=== PATIENT | male | born 1965 | race African-American/Black ===

== ENCOUNTER 2016-09-03 13:00 | Inpatient (IN) | payer BC ==
[~2016-09-03] VITALS: Ht 177.8 cm; Wt 79.7 kg
--- NOTE | ~2016-09-03 | HC ---
[facility] [place] [address] CONSULTATION Name: TANYA FRANK Room #: 422-P [facility] IN M.R.#: [id number] Admission: 09/03/16 Attend Phys: Reggie Velasquez MD Discharge: Date of : 69 Report #: [id number] THIS REPORT FOR: //name// CC: Reggie Gutierrez [facility] DATE OF SERVICE: 09/03/2016 HISTORY OF PRESENT ILLNESS: The patient is a 50-year-old -[place] male who comes in today with progressive abdominal pain and discomfort, epigastric, associated with some nausea, vomiting. We do not have a prior EKG. Here, he does have some subtle T-wave abnormalities. He has followup for an idiopathic cardiomyopathy, he is a fairly good historian. He sees Dr. Mendez once a year or so, possibly a stress test a couple of years ago, but this is felt to be nonischemic. Although, has significant family history for premature coronary disease. This pain is associated with radiation throughout his abdomen and into his chest, does not appear to have an exertional component. He is fairly active. It sounds like he is a functioning alcoholic, drinks at least a pine of vodka a day, but he works multimedia designer as embalmer. He is compliant with medications, which are losartan, carvedilol 12.5 b.i.d., Aldactone, Xarelto for some questionable thrombus in this heart, I do not have those records, Aldactone is 25, Lipitor 10, losartan 25, Percocet. LABORATORY DATA: Cardiac enzymes are negative. Creatinine 1.1, potassium 3.0, sodium 135. H and H is 14 and 40, platelets 140. White count 7.3, alcohol level was less than 10. Lipase was , glucose 144. Remainder of liver function tests relatively normal. Troponin is negative. PAST MEDICAL HISTORY: Positive for an idiopathic cardiomyopathy, recurrent alcoholic pancreatitis, alcoholism, tobacco abuse, COPD, hypertension, hypercholesterolemia, some questionable cardiac thrombus. SOCIAL HISTORY: He is with children. He works as embalmer, heavy alcohol and tobacco use. FAMILY HISTORY: Had a twin brother and have had a heart attack and a sister who had a heart attack he states, obviously in their 50s. REVIEW OF SYSTEMS: Negative except for some occasional nocturia and as stated above. ASSESSMENT: 1. Pancreatitis with severe abdominal discomfort, alcohol induced. 2. History of idiopathic cardiomyopathy. 3. Hypertension. 4. Hypercholesterolemia. [facility] [address] [address] CONSULTATION Name: TANYA FRANK Room #: 422-P [facility] IN ..#: [id number] Admission: 09/03/16 Attend Phys: Reggie Velasquez MD Discharge: Date of : 69 Report #: [id number] 5. Apparent glucose intolerance. RECOMMENDATIONS AND PLAN: Obviously, IV fluids and pain control, certainly high alert for withdrawal here, although he states he has never had that, continue with his losartan, atorvastatin, Xarelto, although I am not totally clear on the dose of the Xarelto here, 10 mg and like to clarify exactly the utilization of this in the setting, carvedilol 12.5 b.i.d. and pain control. I would presumably want to repeat an echo on him. I do not perceive any of this chest pain to be current active myocardial ischemia, but certainly after treatment of the pancreatitis, he will need further evaluation of this coronary artery status, that could be done as an outpatient I suspect and we will, however, continue to follow with you. I would like to try to clarify the dose and the reason for the Xarelto anticoagulant. By: 2132 0021 Mark Back MD, FACC /nt
--- NOTE | ~2016-09-03 | EKG ---
[address] [address] ELECTROCARDIOGRAM REPORT Name: TANYA FRANK Room #: 422-P ADM IN M.R.#: [id number] Admission: 09/03/16 Attend Phys: Reggie Velasquez MD Discharge: Date of : 69 Report #: [id number] THIS REPORT FOR: //name// [facility] ED Test Date: 2016-09-03 Test Time: 13:13:29 Pat Name: TANYA FRANK Department: Room: 422 Gender: M Deposit Refund Clerk: Radha MCCORD : 1965 Requested By: Vanessa Hays Order Number: [id number] MD: Yoni Lux Measurements Intervals [place] Rate: 74 P: 51 [place]: 168 QRS: 0 QRSD: 114 T: 133 QT: 377 QTc: 419 Interpretive Statements Sinus rhythm Atrial premature complex Probable left atrial enlargement Baseline wander in lead(s) II,V1,V2,V3,V4,V5,V6 No previous ECG available for comparison Electronically Signed On 09-04-2016 14:01:16 CDT by Yoni Lux [email or web address] <ELECTRONICALLY SIGNED> By: Yoni Lux MD, [facility] 09/04/16 1401 1313 1313 Yoni Lux MD, [facility] /EPI
--- NOTE | ~2016-09-03 | EKG ---
[place] [address] [address] [place] [address] ELECTROCARDIOGRAM REPORT Name: TANYA FRANK Room #: 422-P ADM IN M.R.#: [id number] Admission: 09/03/16 Attend Phys: Reggie Velasquez MD Discharge: Date of : 69 Report #: [id number] THIS REPORT FOR: //name// [facility] Test Date: 2016-09-04 Test Time: 07:43:43 Pat Name: TANYA FRANK Department: Room: 422 P Gender: M Professional System Administrator: RAEGAN : 1965 Requested By: Mark Back Order Number: [id number] MD: Yoni Lux Measurements Intervals [place] Rate: 82 P: 38 [place]: 151 QRS: -49 QRSD: 94 T: 90 QT: 395 QTc: 462 Interpretive Statements Sinus rhythm Left atrial enlargement Left anterior fascicular block Low voltage, extremity and precordial leads Abnormal R-wave progression, early transition No previous ECG available for comparison Electronically Signed On 09-04-2016 14:09:10 CDT by Yoni Lux [email or web address] <ELECTRONICALLY SIGNED> By: Yoni Lux MD, [facility] 09/04/16 1409 0743 0743 Yoni Lux MD, [facility] /EPI
[2016-09-03 13:01] VITALS: BP 149/63
[2016-09-03] MEDS ORDERED: ALDACTONE25 MG PO (13:18)
[2016-09-03] MEDS ORDERED: XARELTO10 MG PO (13:19)
[2016-09-03] MEDS ORDERED: CARVEDILOL12.5 MG PO (13:19)
[2016-09-03] MEDS ORDERED: LIPITOR10 MG PO (13:20)
[2016-09-03] MEDS ORDERED: COZAAR 25 MG TA25 M1 PO (13:20)
[2016-09-03] MEDS ORDERED: PERCOCET PO (13:21)
[2016-09-03] MEDS ORDERED: TYLENOL PM EX-1 EACH PO (13:21)
[2016-09-03 13:35] LABS: HEMATOCRIT 40.9 % (42.0-52.0); HEMOGLOBIN 14.4 gm/dL (14.0-18.0); MCH 34.5 pg (26.0-34.0); MCHC 35.1 g/dL (28.0-37.0); MCV 98.2 fL (80.0-100.0); PLATELET COUNT 148 thou/uL (150-400); RBC 4.16 mil/uL (4.50-6.00); WBC 7.3 thou/uL (4.0-11.0)
[2016-09-03 13:37] LABS: ANION GAP 6 mmol/L (7-16); BUN 13 mg/dL (7-18); CALCIUM 9.2 mg/dL (8.5-10.1); CHLORIDE 103 mmol/L (98-107); CO2 26 mmol/L (21-32); CREATININE 1.1 mg/dL (0.7-1.3); GLUCOSE 144 mg/dL (74-106); MANUAL DIFF YES; POTASSIUM 3.9 mmol/L (3.5-5.1); SODIUM 135 mmol/L (136-145)
[2016-09-03 13:44] LABS: TROPONIN-I < 0.04 ng/mL (<0.04-0.07)
[2016-09-03 13:51] LABS: ALBUMIN 3.2 g/dL (3.4-5.0); DIRECT BILIRUBIN 0.3 mg/dL (<0.1-0.3); TOTAL PROTEIN 6.9 g/dL (6.4-8.2)
[2016-09-03 14:03] LABS: ABSOLUTE NEUTROPHILS 5.5 thou/uL (1.4-8.2); ANISOCYTOSIS 1+; TOTAL CELL COUNT 100
[2016-09-03 15:05] VITALS: BP 146/80
[2016-09-03 15:31] VITALS: BP 157/89
[2016-09-03 19:15] VITALS: BP 151/95
[2016-09-04 05:02] VITALS: BP 151/81
[2016-09-04 06:00] LABS: HEMATOCRIT 41.1 % (42.0-52.0); HEMOGLOBIN 14.4 gm/dL (14.0-18.0); MCH 34.8 pg (26.0-34.0); MCHC 35.2 g/dL (28.0-37.0); MCV 98.9 fL (80.0-100.0); RBC 4.15 mil/uL (4.50-6.00); RDW 13.9 % (10.5-14.5)
[2016-09-04 06:33] LABS: CALCIUM 8.6 mg/dL (8.5-10.1); CREATININE 0.9 mg/dL (0.7-1.3); POTASSIUM 4.4 mmol/L (3.5-5.1); TOTAL BILIRUBIN 0.8 mg/dL (<0.1-1.0); TOTAL PROTEIN 6.2 g/dL (6.4-8.2)
[2016-09-04 08:26] VITALS: BP 138/82
[2016-09-04 09:19] LABS: CHOLESTEROL 120 mg/dL (<200); HDL CHOLESTEROL 45 mg/dL (>40); LDL CHOLESTEROL 58 mg/dL (<100); TC:HDL 2.7 Ratio (Not establshd); TRIGLYCERIDE 86 mg/dL (<150); VLDL 17 mg/dL (<40)
[2016-09-04 15:01] VITALS: BP 117/70
[2016-09-04 20:00] VITALS: BP 115/68
[2016-09-05 04:30] VITALS: BP 118/75
[2016-09-05 06:00] LABS: ALBUMIN 2.6 g/dL (3.4-5.0); CALCIUM 8.1 mg/dL (8.5-10.1); CREATININE 0.9 mg/dL (0.7-1.3); MAGNESIUM 1.3 mg/dL (1.8-2.4); POTASSIUM 3.8 mmol/L (3.5-5.1); TOTAL BILIRUBIN 0.5 mg/dL (<0.1-1.0); TOTAL PROTEIN 5.8 g/dL (6.4-8.2)
[2016-09-05 07:22] VITALS: BP 140/70
[2016-09-05] MEDS ORDERED: TRAMADOL 50 MG50 MG PO (10:22)
[2016-09-05 10:27] VITALS: BP 140/70
== END 2016-09-05 11:18 | disposition home or self-care (01) | DRG 438 ==
LOC: ER 13:00 → EROBS 14:36 → 4E 15:16
PROVIDERS: Emergency Medicine; Hospitalist; Internal Medicine; Nurse Practitioner Adult Health
DX: K85.20 Alcohol induced acute pancreatitis without necrosis or infection (principal); E43 Unspecified severe protein-calorie malnutrition; I42.9 Cardiomyopathy, unspecified; R07.89 Other chest pain; I10 Essential (primary) hypertension; E78.00 Pure hypercholesterolemia, unspecified; F17.210 Nicotine dependence, cigarettes, uncomplicated; J44.9 Chronic obstructive pulmonary disease, unspecified; E74.39 Other disorders of intestinal carbohydrate absorption; F10.20 Alcohol dependence, uncomplicated; Z79.899 Other long term (current) drug therapy; Z82.49 Family history of ischemic heart disease and other diseases of the circulatory system; Z68.25 Body mass index [BMI] 25.0-25.9, adult
CPT/HCPCS: 10183

== ENCOUNTER 2016-12-26 20:31 | Inpatient (IN) | payer BC ==
[~2016-12-26] VITALS: Ht 175.3 cm; Wt 81.3 kg
--- NOTE | ~2016-12-26 | HC ---
[facility] [place] [address] CONSULTATION Name: TNAYA FRANK Room #: 242-P ADM IN M.R.#: [id number] Admission: 12/26/16 Attend Phys: Ishan Caldera MD Discharge: Date of : 69 Report #: [id number] THIS REPORT FOR: //name// CC: Brenda Caldera DATE OF SERVICE: 12/27/2016 REASON FOR CONSULTATION: Respiratory insufficiency. IMPRESSION: 1. Pulmonary infiltrates, possible aspiration pneumonia. 2. Uzsvc-fx-yjdtqzj pancreatitis. 3. History of hematemesis, not melena. 4. History of cardiomyopathy. 5. Thrombocytopenia. 6. ETOH use, possible withdrawal. 7. History of left ventricular thrombus. PLAN: Aerosol therapy. Agree with antibiotic choice. GI to see echocardiogram. HISTORY OF PRESENT ILLNESS: A 51-year-old with history of pancreatitis, ETOH use, comes in with complaint of abdominal pain x 3 days. The patient is not able to give a good history. is present and we discussed positive nausea, vomiting. 1 pint of liquor per day per chart. PAST MEDICAL HISTORY: ALLERGIES: None known. HOME MEDICATIONS: Include spironolactone, Xarelto, Coreg, Lipitor, Cozaar. SOCIAL HISTORY: Positive tobacco 2 packs a day, daily alcohol. FAMILY HISTORY: Heart disease and hypertension. PHYSICAL EXAMINATION: LUNGS: Decreased. HEART: Tachycardic. ABDOMEN: Tender diffuse. EXTREMITIES: Showed no clubbing, cyanosis. Positive trace edema. Did follow . CT abdomen and pelvis showed fatty liver and acute pancreatitis. Chest x-ray showed no acute initially; however, this a.m. showed patchy right infiltrate. ABG: pH 7.429, pCO2 of 33, pO2 of BUN 6, creatinine 1, lipase 1980, [facility] [address] [place] [address] CONSULTATION Name: TANYA FRANK Room #: 242-P ADM IN .R.#: [id number] Admission: 12/26/16 Attend Phys: Ishan Caldera MD Discharge: Date of : 69 Report #: [id number] lactate 2.4, white count 9.3, hemoglobin 14.5, platelets 108, bands, 3. Venous Doppler negative. We will follow closely with you. <ELECTRONICALLY SIGNED> By: Earnestine Conner MD 12/29/16 1907 1943 0737 Earnestine Conner MD /nt
--- NOTE | ~2016-12-26 | EKG ---
[place] [address] [address] [address] ELECTROCARDIOGRAM REPORT Name: TANYA FRANK Room #: 242-P ADM IN M.R.#: [id number] Admission: 12/26/16 Attend Phys: Ishan Caldera MD Discharge: Date of : 69 Report #: [id number] THIS REPORT FOR: //name// [facility] ED Test Date: 2016-12-26 Test Time: 21:59:26 Pat Name: TANYA FRANK Department: Room: 242 Gender: M Burlapper: [id number] : 1965 Requested By: John Pederson Order Number: [id number] MD: Yoni Lux Measurements Intervals [place] Rate: 95 P: 49 [place]: 138 QRS: -29 QRSD: 179 T: 68 QT: 368 QTc: 463 Interpretive Statements Sinus rhythm Leftward axis Nonspecific T wave abnormality Compared to ECG 09/04/2016 07:43:43 No significant change was found Electronically Signed On 12-27-2016 7:24:20 CDT by Yoni Lux [email or web address] <ELECTRONICALLY SIGNED> By: Yoni Lux MD, [facility] 12/27/16 0724 58 58 Yoni Lux MD, [facility] /EPI
--- NOTE | ~2016-12-26 | HC ---
[facility] [place] [address] CONSULTATION Name: TANYA FRANK Room #: 215-[facility] IN M.R.#: [id number] Admission: 12/26/16 Attend Phys: Ishan Caldera MD Discharge: 01/01/17 Date of : 69 Report #: [id number] THIS REPORT FOR: //name// CC: Brendamarietta Caldera DATE OF SERVICE: 12/28/2016 HISTORY OF PRESENT ILLNESS: A 51-year-old male who was admitted with some abdominal pain and questionable hypoxemia. There is some question of pulmonary infiltrate and aspiration. Longstanding cardiomyopathy, felt to be presumed alcoholic. He has had significant withdrawals for the last couple of days, better tonight, but still a poor historian. It is not clear if there is any acute decompensation of his cardiac function here, but I am called [facility] to see the patient. EF has been 30% to 35% on an echo done yesterday. There is mild to moderate MR and TR. PA pressure was 40. I saw him a few months ago for a hospitalization. Acute on chronic pancreatitis and alcohol withdrawal. He has had significant alcohol withdrawal symptoms for the last couple of days. From that records we have previously obtained, this appears to be an alcohol-induced cardiomyopathy. He has never had a prior infarct or any stents placed. I see no evidence of any prior films or any limited prior records that I recall that had anything about an apical thrombus. It is not a segmental wall motion abnormality, it is global. He has allegedly been maintained on Lipitor, losartan, clonidine, and carvedilol. I am not sure how compliant he has been. He is a daily heavy drinker. 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 He denies any chest pain. He had been on some Xarelto in the past for thrombus, I guess from an old record, but I do not have documentation of this. SOCIAL HISTORY: He is . He is an embalmer. Heavy daily alcohol or tobacco use. to a woman with 4 children, he was unclear. FAMILY HISTORY: He states he had a twin brother who had a heart attack, I am not sure that this is also reliable. I am not really able to obtain any ____ review of systems. He states he has to get up at night to urinate. LABORATORY DATA: Laboratory work reveals lipase of 939, it was 2900, so obviously, he had a pancreatitis, I am not sure it has ever resolved completely. Amylase was 270, then 157. Creatinine is 1.3. Potassium 4.0. Total protein is low at 5.9. Troponin 0.09, not significant. Lipids were extremely low as would be expected in alcoholism when they were checked in August. H and H are 13 and 38 with a white count of 13.6 and platelets 103. Chest x-ray today, cardiomegaly, no other significant findings. [facility] [address] [place] [address] CONSULTATION Name: TANYA FRANK Room #: 215-P DIS IN M.R.#: [id number] Admission: 12/26/16 Attend Phys: Ishan Caldera MD Discharge: 01/01/17 Date of : 69 Report #: [id number] ASSESSMENT: 1. Acute on chronic pancreatitis. 2. Idiopathic presumed alcoholic cardiomyopathy, but certainly currently hemodynamically stable. 3. History of hypertension. 4. Alcohol abuse and alcohol withdrawal. RECOMMENDATIONS: I believe there has been extensive workup. He has been followed by Dr. Mendez at [facility], although I do not know when he was last there and obviously, compliance is an issue. He states he was taking 10 mg of Xarelto, I am not sure there is data for that dose, would be low, Aldactone, Lipitor, carvedilol, and losartan. I would continue those medications, which I believe they have been and I do not have anything else to have from a cardiac perspective or recommend any further cardiac workup at this time. Obviously, alcohol cessation would be of extreme benefit here, probably not realistic. Please call if needed. <ELECTRONICALLY SIGNED> By: Mark Back MD, FACC 01/02/17 1646 2226 0203 Mark Back MD, FACC /nt
--- NOTE | ~2016-12-26 | 2DMMODE ---
[facility] [address] [place] [address] 2 D/M-MODE ECHOCARDIOGRAM Name: TANYA FRANK Room #: 242-P ADM IN M.R.#: [id number] Admission: 12/26/16 Attend Phys: Michael Krueger Discharge: Date of : 69 Date of Service: 12/28/16 1235 Report #: [id number] THIS REPORT FOR: //name// APPROVED REPORT Study performed: 12/28/2016 09:29:12 EXAM: Comprehensive 2D, Doppler, and color-flow Echocardiogram Patient Location: ICU Room #: 242 Status: routine BSA: 1.88 HR: 98 bpm BP: 105/65 mmHg Rhythm: NSR Other Information Study Quality: Adequate Technically limited study due to patient cooperation. Indications Hx: Cardiomyopathy, ETOH and tobacco abuse. 2D Dimensions RVDd: 37.46 mm LVEF(%): 29.00 (>50%) IVSd: 11.12 (7-11mm) LVOT Diam: 20.95 (18-24mm) LVDd: 55.69 mm PWd: 10.33 (7-11mm) Ascending Ao: 29.08 (22-36mm) LVDs: 48.04 (25-40mm) Aortic Root: 26.18 mm Tolbert's LVEF: 29.00 % Volumes Left Atrial Volume (Systole) Single Plane 4CH: 86.28 mL Single Plane 2CH: 76.24 mL LA ESV Index: 50.00 mL/m2 Aortic Valve AoV Peak Jaylen.: 1.54 m/s AO Peak Gr.: 9.45 mmHg LVOT Max P.03 mmHg LVOT Max V: 1.12 m/s ZANE Vmax: 2.51 cm2 Mitral Valve [facility] [address] [place] [address] 2 D/M-MODE ECHOCARDIOGRAM Name: TANYA FRANK Room #: 242-[facility] IN .R.#: [id number] Admission: 12/26/16 Attend Phys: Michael Krueger Discharge: Date of : 69 Date of Service: 12/28/16 1235 Report #: [id number] E/A Ratio: 0.8 MV Decel. Time: 125.94 ms MV E Max Jaylen.: 1.29 m/s MV A Jaylen.: 1.53 m/s MV PHT: 36.52 ms IVRT: 143.02 ms Pulmonary Valve PV Peak Jaylen.: 0.97 m/s PV Peak Gr.: 3.79 mmHg Tricuspid Valve TR Peak Jaylen.: 2.43 m/s RAP Estimate: 5.00 mmHg TR Peak Gr.: 23.71 mmHg PA Pressure: 28.00 mmHg Left Ventricle The left ventricle is normal size. Regional wall motion abnormalities are noted. There is normal left ventricular wall thickness. Left ventricular systolic function is moderate to severely decreased. LVEF is 30-35%. Mild diastolic dysfunction is present (impaired relaxation pattern). Right Ventricle The right ventricle is normal size. The right ventricular systolic function is normal. Atria Left atrium is severely dilated. The right atrium size is normal. Aortic Valve The aortic valve is normal in structure. Mild to moderate aortic regurgitation. There is no aortic valvular stenosis. Mitral Valve The mitral valve is mildly thickened. There is mitral annular calcification. Moderate mitral regurgitation. Tricuspid Valve The tricuspid valve is normal in structure. Trace tricuspid regurgitation. Estimated PAP is 28mmHg. Pulmonic Valve The pulmonary valve is normal in structure. Trace pulmonic regurgitation. [facility] [address] [place] [address] 2 D/M-MODE ECHOCARDIOGRAM Name: TANYA FRANK Room #: 242-P [facility] IN M.R.#: [id number] Admission: 12/26/16 Attend Phys: Michael Krueger Discharge: Date of : 69 Date of Service: 12/28/16 1235 Report #: [id number] Great Vessels The aortic root is normal in size. The ascending aorta is normal in size. IVC is normal in size and collapses >50% with inspiration. Pericardium There is no pericardial effusion. <Conclusion> The left ventricle is normal size. Left ventricular systolic function is moderate to severely decreased. Mild diastolic dysfunction is present (impaired relaxation pattern). The right ventricle is normal size. Left atrium is severely dilated. Mild to moderate aortic regurgitation. Moderate mitral regurgitation. Trace tricuspid regurgitation. Estimated PAP is 28mmHg. <ELECTRONICALLY SIGNED> By: Jose Wolfe MD 12/28/16 1235 1235 1235 Jose Wolfe MD /INF
[~2016-12-26 20:31] MED LIST: ALDACTONE25 MG PO; CARVEDILOL12.5 MG PO; COZAAR 25 MG TA25 M1 PO; LIPITOR10 MG PO; PERCOCET PO; TRAMADOL 50 MG50 MG PO; TYLENOL PM EX-1 EACH PO; XARELTO10 MG PO
[2016-12-26 20:39] VITALS: BP 141/89
[2016-12-26 22:05] LABS: ABSOLUTE NEUTROPHILS 6.9 thou/uL (1.4-8.2); BASOPHILS 0.4 % (0.0-2.0); EOSINOPHILS 0.1 % (0.0-3.0); HEMATOCRIT 39.6 % (42.0-52.0); HEMOGLOBIN 14.2 gm/dL (14.0-18.0); LYMPHOCYTES 11.9 % (24.0-44.0); MANUAL DIFF NO; MCH 36.5 pg (26.0-34.0); MCHC 35.8 g/dL (28.0-37.0); MONOCYTES 10.4 % (1.0-8.0); PLATELET COUNT 138 thou/uL (150-400); POLYS 77.2 % (36.0-66.0); RBC 3.88 mil/uL (4.50-6.00); RDW 15.4 % (10.5-14.5); WBC 8.9 thou/uL (4.0-11.0)
[2016-12-26 22:09] LABS: CALCIUM 8.6 mg/dL (8.5-10.1); CREATININE 1.2 mg/dL (0.7-1.3); POTASSIUM 3.5 mmol/L (3.5-5.1)
[2016-12-26 22:16] LABS: ALBUMIN 3.5 g/dL (3.4-5.0); TOTAL BILIRUBIN 0.5 mg/dL (<0.1-1.0); TOTAL PROTEIN 7.6 g/dL (6.4-8.2)
[2016-12-27] VITALS (28 sets, daily range): BP systolic 113–174; BP diastolic 74–111
[2016-12-27 03:24] LABS: INR 1.1; PROTIME 11.2 Seconds (9.3-11.4)
[2016-12-27 03:26] LABS: FOLIC ACID 2.2 ng/mL (8.6-58.9); TSH 1.769 uIU/mL (0.358-3.740)
[2016-12-27 07:28] LABS: HEMOGLOBIN 13.5 gm/dL (14.0-18.0)
[2016-12-27 07:34] LABS: MCH 36.2 pg (26.0-34.0); MCHC 35.4 g/dL (28.0-37.0); MCV 102.1 fL (80.0-100.0); PLATELET COUNT 103 thou/uL (150-400); RBC 3.73 mil/uL (4.50-6.00); RDW 15.4 % (10.5-14.5); WBC 8.8 thou/uL (4.0-11.0)
[2016-12-27 07:35] LABS: MANUAL DIFF YES
[2016-12-27 07:51] LABS: MAGNESIUM 0.4 mg/dL (1.8-2.4)
[2016-12-27 09:14] LABS: ABSOLUTE NEUTROPHILS 7.7 thou/uL (1.4-8.2); PLATELET ESTIMATE NORMAL; TOTAL CELL COUNT 100
[2016-12-27 09:57] LABS: ABG SAMPLE TYPE ARTERIAL; BE(vivo) -1.8 mmol/L (-2 to +3); HCO3 21.7 mmol/L (22.0-26.0); LACTATE 2.09 mmol/L (0.5-2.0); O2(CT) 18.8 mL/dL (15.0-23.0); PCO2 33.5 mmHg (35.0-45.0); PO2 71.2 mmHg (80.0-100.0); pH 7.429 (7.360-7.450); sO2 94.9 % (92.0-98.0); tCO2 22.7 mmol/L (24.0-30.0)
[2016-12-27 09:58] LABS: STICK SITE R.RADIAL
[2016-12-27 12:16] LABS: CALCIUM 7.5 mg/dL (8.5-10.1); POTASSIUM 4.7 mmol/L (3.5-5.1)
[2016-12-27 12:26] LABS: HEMATOCRIT 40.5 % (42.0-52.0); HEMOGLOBIN 14.5 gm/dL (14.0-18.0); MCH 36.6 pg (26.0-34.0); MCHC 35.8 g/dL (28.0-37.0); MCV 102.4 fL (80.0-100.0); PLATELET COUNT 108 thou/uL (150-400); RBC 3.96 mil/uL (4.50-6.00); RDW 15.5 % (10.5-14.5); WBC 9.3 thou/uL (4.0-11.0)
[2016-12-27 12:27] LABS: ALBUMIN 3.1 g/dL (3.4-5.0); TOTAL BILIRUBIN 1.3 mg/dL (<0.1-1.0); TOTAL PROTEIN 6.4 g/dL (6.4-8.2)
[2016-12-27 12:28] LABS: MANUAL DIFF YES
[2016-12-27 12:56] LABS: ABSOLUTE NEUTROPHILS 8.7 thou/uL (1.4-8.2); PLATELET ESTIMATE NORMAL; TOTAL CELL COUNT 100
[2016-12-28] VITALS (25 sets, daily range): BP systolic 105–170; BP diastolic 65–96
[2016-12-28 06:19] LABS: HEMATOCRIT 38.2 % (42.0-52.0); HEMOGLOBIN 13.1 gm/dL (14.0-18.0); MCH 35.4 pg (26.0-34.0); MCHC 34.2 g/dL (28.0-37.0); MCV 103.4 fL (80.0-100.0); PLATELET COUNT 103 thou/uL (150-400); RBC 3.69 mil/uL (4.50-6.00); WBC 13.6 thou/uL (4.0-11.0)
[2016-12-28 06:20] LABS: MANUAL DIFF YES
[2016-12-28 06:28] LABS: INR 1.2; PROTIME 11.8 Seconds (9.3-11.4)
[2016-12-28 06:30] LABS: ALBUMIN 2.7 g/dL (3.4-5.0); CALCIUM 7.8 mg/dL (8.5-10.1); CREATININE 1.3 mg/dL (0.7-1.3); MAGNESIUM 1.8 mg/dL (1.8-2.4); TOTAL BILIRUBIN 1.1 mg/dL (<0.1-1.0); TOTAL PROTEIN 5.9 g/dL (6.4-8.2)
[2016-12-28 09:05] LABS: ABSOLUTE NEUTROPHILS 12.5 thou/uL (1.4-8.2); PLATELET ESTIMATE NORMAL; TOTAL CELL COUNT 100
[2016-12-29] VITALS (22 sets, daily range): BP systolic 107–146; BP diastolic 70–107
[2016-12-29 06:20] LABS: ALBUMIN 2.6 g/dL (3.4-5.0); DIRECT BILIRUBIN 0.4 mg/dL (<0.1-0.3); TOTAL PROTEIN 5.6 g/dL (6.4-8.2)
[2016-12-29 06:21] LABS: ALBUMIN 2.6 g/dL (3.4-5.0); CALCIUM 8.1 mg/dL (8.5-10.1); MAGNESIUM 1.6 mg/dL (1.8-2.4); PHOSPHORUS 3.1 mg/dL (2.5-4.9); POTASSIUM 3.8 mmol/L (3.5-5.1); TOTAL PROTEIN 5.6 g/dL (6.4-8.2)
[2016-12-30] VITALS (19 sets, daily range): BP systolic 103–154; BP diastolic 68–112
[2016-12-30 02:35] LABS: ALBUMIN 2.8 g/dL (3.4-5.0); CALCIUM 8.3 mg/dL (8.5-10.1); PHOSPHORUS 3.4 mg/dL (2.5-4.9); POTASSIUM 3.8 mmol/L (3.5-5.1)
[2016-12-31 04:01] VITALS: BP 126/81
[2016-12-31 04:38] LABS: ALBUMIN 2.5 g/dL (3.4-5.0); CREATININE 1.1 mg/dL (0.7-1.3); MAGNESIUM 1.3 mg/dL (1.8-2.4); POTASSIUM 3.7 mmol/L (3.5-5.1); TOTAL BILIRUBIN 1.2 mg/dL (<0.1-1.0); TOTAL PROTEIN 5.6 g/dL (6.4-8.2)
[2016-12-31 07:41] VITALS: BP 126/77
[2016-12-31 11:26] VITALS: BP 134/82
[2016-12-31 16:00] VITALS: BP 145/98
[2016-12-31 19:21] VITALS: BP 134/88
[2017-01-01 04:35] VITALS: BP 108/74
[2017-01-01 06:57] LABS: ALBUMIN 2.6 g/dL (3.4-5.0); CALCIUM 8.3 mg/dL (8.5-10.1); MAGNESIUM 2.3 mg/dL (1.8-2.4); PHOSPHORUS 3.9 mg/dL (2.5-4.9); POTASSIUM 3.5 mmol/L (3.5-5.1)
[2017-01-01 08:48] VITALS: BP 125/82
[2017-01-01] MEDS ORDERED: AUGMENTIN 875-1 EACH PO (08:52)
[2017-01-01] MEDS ORDERED: VITAMIN B-1100 M2 PO (08:52)
[2017-01-01] MEDS ORDERED: PROTONIX IV40 MG IV PUSH (08:53)
[2017-01-01] MEDS ORDERED: PRENATAL PO (08:53)
[2017-01-01] MEDS ORDERED: CHLORDIAZEPOXID10 MG PO (09:16)
[2017-01-01] MEDS ORDERED: NICOTINE TRANSD21 M1 TRANSDERM (09:16)
[2017-01-01 10:07] VITALS: BP 125/82
[2017-01-01] MEDS ORDERED: PROTONIX40 M1 PO (10:13)
== END 2017-01-01 12:27 | disposition home or self-care (01) | DRG 438 ==
LOC: ER 20:31 → ICU 23:49 → EROBS 23:49 → ICU 12-27 01:45 → 2N 12-30 17:14
PROVIDERS: Emergency Medicine; Hospitalist; Internal Medicine Gastroenterology; Internal Medicine Pulmonary Disease; Nurse Practitioner Acute Care
DX: K85.20 Alcohol induced acute pancreatitis without necrosis or infection (principal); J69.0 Pneumonitis due to inhalation of food and vomit; F10.239 Alcohol dependence with withdrawal, unspecified; I42.6 Alcoholic cardiomyopathy; K92.0 Hematemesis; K86.1 Other chronic pancreatitis; F17.210 Nicotine dependence, cigarettes, uncomplicated; D69.6 Thrombocytopenia, unspecified; K76.0 Fatty (change of) liver, not elsewhere classified; F32.9 Major depressive disorder, single episode, unspecified; E87.70 Fluid overload, unspecified; Z82.49 Family history of ischemic heart disease and other diseases of the circulatory system; Z79.899 Other long term (current) drug therapy
CPT/HCPCS: 10078; 10081

== ENCOUNTER 2017-03-27 11:05 | Inpatient (IN) | payer BC ==
[~2017-03-27] VITALS: Ht 175.3 cm; Wt 34.3 kg
--- NOTE | ~2017-03-27 | S ---
[facility] [place] [address] SURGICAL PATH RPT PROCEDURE Name: TANYA FRANK Room #: 241-P DIS IN M.R.#: [id number] Admission: 03/27/17 Date of : 69 Discharge: 03/31/17 Report #: [id number] Path Case #: [id number] PATHOLOGY REPORT COLLECTION DATE: 03/31/2017 RECEIVED DATE: 03/31/2017 SUBMITTING PHYS: Dr. Hong Kidd OTHER PHYS: Dr. Brenda Arias SPECIMEN(S) RECEIVED: A.Bx of gastritis R/T abdominal pain * * * * * * * * * * * * FINAL DIAGNOSIS: "BX of gastritis, R/T abdominal pain", biopsy: - Gastric mucosa with mild reactive changes and mild predominantly chronic inflammation. - No organisms identified on H. pylori immunohistochemical stain (Block A1); control reacted appropriately. (CLW:barak; 04/04/2017) PATHOLOGIST: Melissa Godfrey M.D. REPORT ELECTRONICALLY SIGNED BY: Melissa Godfrey M.D. DATE/TIME: 04/04/2017 20:27 * * * * * * * * * * * * GROSS PATHOLOGY: The specimen is received in formalin, labeled "Faithanum Tanya and biopsy of gastritis", are several roldan soft tissues in aggregate measuring 0.5 x 0.5 x 0.1 cm, entirely submitted in A1. ([facility]; 03/31/2017) CLINICAL HISTORY: Abdomen pain INITIAL CPT CODE(S): A; 64800, 14540 Professional services performed by [facility] at [facility] [address], [place] [address] Technical services performed by [facility] at [address] [place] [address]. [facility] [address] [place] [address] SURGICAL PATH RPT PROCEDURE Name: TANYA FRANK Room #: 241-P [facility] IN M.R.#: [id number] Admission: 03/27/17 Date of : 69 Discharge: 03/31/17 Report #: [id number] Path Case #: [id number] [facility] [address] [address] PHONE: [phone] DIRECTOR: Mukesh Anthony M.D. * * * END OF REPORT * * *
--- NOTE | ~2017-03-27 | P ---
[facility] [place] [address] PROCEDURE REPORT Name: TANYA FRANK Room #: [facility] IN M.R.#: [id number] Admission: 03/27/17 Attend Phys: Abram Frances MD Discharge: 03/31/17 Date of : 69 Report #: [id number] THIS REPORT FOR: //name// CC: Gene Frances DATE OF SERVICE: 03/31/2017 INPATIENT UPPER ENDOSCOPY BRIEF HISTORY: The patient is a 51-year-old male who was admitted to [facility] with recurrent pancreatitis thought to be related to alcohol. He has developed increasing postprandial epigastric pain raising concern for peptic mucosal disease. PREOPERATIVE DIAGNOSIS: Worsening abdominal pain. POSTOPERATIVE DIAGNOSIS: Moderate diffuse gastritis without ulceration. MEDICATIONS: Deep sedation with propofol per anesthesia. SPECIMEN: Biopsies of gastritis. ESTIMATED BLOOD LOSS: 3 mL. PROCEDURE: Esophagogastroduodenoscopy with biopsy. FINDINGS: Prior to propofol sedation, procedure of upper endoscopy was discussed with the patient as well as potential risks and its complications. He indicates he understands and desires to proceed. DESCRIPTION OF PROCEDURE: With the patient in left lateral decubitus position, the MedSave [employer]i video endoscope was inserted in the cervical esophagus under direct vision without difficulty. Examination of this organ through its entire length revealed normal esophageal mucosa down the squamocolumnar junction. Squamocolumnar junction was inspected and noted to be unremarkable. No ulcers or erosions were seen. Hiatus hernia was not seen. The scope was advanced in the stomach, was examined on end view as well as retroflexed views. He was noted to have a diffuse gastritis. No ulcers or erosions were seen. On retroflexion, no mass lesions were seen. The pylorus, duodenal bulb and postbulbar duodenal sweep were inspected and noted to be unremarkable. At that point, the scope was slowly withdrawn and careful circumferential views confirmed the above findings. The patient tolerated the procedure well. Biopsies obtained of the gastritis. [address] [address] PROCEDURE REPORT Name: TANYA FRANK Room #: [address] [place] [address] IN .R.#: [id number] Admission: 03/27/17 Attend Phys: Abram Frances MD Discharge: 03/31/17 Date of : 69 Report #: [id number] DISPOSITION: The patient with worsening upper abdominal pain. He was admitted with pancreatitis. I do not see evidence of peptic mucosal disease. He has a normal gallbladder on ultrasound. We would suggest a PPI at this point in time. If symptoms do not resolve, PIPIDA scan may be consideration to evaluate gallbladder function. It is possible his symptoms may be related to his pancreatitis. We will advance diet at this time. By: 1143 1925 Hong Kidd MD /nt
--- NOTE | ~2017-03-27 | HC ---
[facility] [place] [address] CONSULTATION Name: TANYA FRANK Room #: [facility] IN M.R.#: [id number] Admission: 03/27/17 Attend Phys: Abram Frances MD Discharge: 03/31/17 Date of : 69 Report #: [id number] THIS REPORT FOR: //name// CC: Gene MedranoCliff Frances PRIMARY CARE PHYSICIAN: Unknown. REFERRING PHYSICIAN: Gene Arias DO REASON FOR REFERRAL: Hypoxia. HISTORY OF PRESENT ILLNESS: The patient is a 51-year-old -Cub[place] male who presents to the emergency room with abdominal pain, nausea and vomiting. He was felt to have pancreatitis. Since admission, the patient has developed hypoxia overnight. A pulmonary consultation was requested. The patient drinks on a regular basis. He states that he drinks about 1 pint of vodka daily. In the past, he has had alcohol withdrawal along with withdrawal seizures. He is also followed by cardiology for dilated cardiomyopathy, felt to be related to alcohol abuse. He is followed by Dr. Momo Mendez at [facility]. His past echocardiogram shows cardiomyopathy with ejection fraction of 30-35%. He also states that he has been told that he has a clot in his heart and has been on anticoagulant. He was admitted on March 27. His chest x-ray on admission was clear. Overnight, the patient states he got nauseated and vomited, then he either vomited or coughed up blood. It was said to be bright red. According to nursing, it was said to be pink frothy. His chest x-ray from earlier this morning shows diffuse right-sided infiltrates along with left lower lobe infiltrates. CT chest angiogram confirms diffuse infiltrates on the right and left lower lobe. No evidence of pulmonary embolus. Overnight, he was on high flow O2 at nonrebreather. Arterial blood gas shows profound hypoxia with increased A-a gradient. Presently this morning, he is much improved following a dose of diuretics. He is on couple liters of O2. At present, he does not appear in distress. The patient denies any past history of GI bleed. He is known to have fatty liver along with pancreatitis. [facility] [address] [place] [address] CONSULTATION Name: TANYA FRANK Room #: 241-P [facility] IN M.R.#: [id number] Admission: 03/27/17 Attend Phys: Abram Frances MD Discharge: 03/31/17 Date of : 69 Report #: [id number] PAST MEDICAL HISTORY: As mentioned above. 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 PAST SURGICAL HISTORY: Unremarkable. ALLERGIES: None to medications. HOME MEDICATIONS: Include multivitamins, thiamine, Xarelto 10 mg once a day, Coreg, Lipitor, Cozaar, and Aldactone. FAMILY HISTORY: Noncontributory. SOCIAL HISTORY: The patient drinks regularly about a pint of vodka a day, he smokes about a pack a day. He is and lives with his spouse. REVIEW OF SYSTEMS: As mentioned above, otherwise 10-point system review negative. PHYSICAL EXAMINATION: GENERAL: He is awake, alert, appears to be mildly dyspneic. VITAL SIGNS: Temperature maximum is 100.5 degrees Fahrenheit, pulse is 109, respiratory rate is 28, blood pressure is 139/85 mmHg, and saturation 100%. HEENT: Normocephalic, atraumatic. NECK: Supple, no lymphadenopathy or thyromegaly. CHEST: Breath sounds are moderate with few scattered crackles in the bases. No wheezes. CARDIOVASCULAR: Normal S1, S2. There are no obvious murmurs or gallop. Pulses are 2+/4+ bilaterally. ABDOMEN: Soft, mildly tender in epigastric area. No rebound tenderness. No masses felt. GENITOURINARY: Deferred. RECTAL: Deferred. EXTREMITIES: There is no edema, cyanosis, or clubbing. LABORATORY DATA: Chest x-ray and CT chest angiogram as mentioned above showing extensive right-sided infiltrates along the left lower lobe infiltrate that is new since admission. CT chest angiogram again shows no evidence of pulmonary embolus. BNP is 2300. D-dimer is elevated. Lipase is 750. CT abdomen and pelvis shows pancreatitis involving the distal pancreatic body and the tail, otherwise unremarkable. Alcohol level on admission was less than 10. Sodium 140, potassium 4.3, chloride 106, CO2 is 27, BUN is 14, and creatinine is 1.2, on admission was 1.4. Liver function enzymes mildly elevated. Total bili is normal. Albumin 3.0. WBC 8600, hemoglobin 14.4, and platelets 80,000. Arterial blood gas revealed pH 7.4, pCO2 34, pO2 49 on 3-1/2 liters of O2. [facility] [address] [place] [address] CONSULTATION Name: TANYA FRANK Room #: 241-P [facility] IN M.R.#: [id number] Admission: 03/27/17 Attend Phys: Abram Frances MD Discharge: 03/31/17 Date of : 69 Report #: [id number] IMPRESSION: 1. Acute hypoxic respiratory failure in this 51-year-old -Cuban male. Chest x-ray shows new bilateral infiltrates. There is a questionable history of hematemesis in this patient with history of alcohol abuse. The patient is on anticoagulant. Suspect the patient likely have aspirated with a history of nausea and vomiting. Other considerations include possible acute on chronic systolic heart failure. 2. Bilateral infiltrates, greater in the right side than the left. History suggests possible aspiration probably blood. He will need to be watched closely for aspiration pneumonia. 3. Possible gastrointestinal bleed in this 51-year-old white male with long history of alcohol abuse. Possibilities include peptic ulcer disease, esophageal varices, etc. 4. History of mural thrombus, on anticoagulation. This will need to be on hold. With questionable gastrointestinal bleed, the patient may benefit from oral anticoagulant such as Coumadin or Pradaxa that can be reversed. 5. Alcohol abuse. No evidence of alcohol withdrawal symptom as yet; however, I would recommend alcohol withdrawal precautions. 6. Acute kidney injury. Creatinine on admission was 1.4, it is improving to 1.1. 7. Abnormal liver function tests. Suspect alcoholic liver disease. Albumin so far has been normal. 8. Thrombocytopenia, presumably due to alcohol abuse. 9. Dilated cardiomyopathy, alcohol induced. 10. Alcohol-induced pancreatitis, GI is following. RECOMMENDATION AND DISCUSSION: The patient had a normal chest x-ray on admission, now it shows diffuse bilateral infiltrates. Aspiration is likely, though cannot rule out heart failure. The patient may have also developed upper GI bleed. We would recommend continue ICU monitoring. Await GI evaluation for possible upper GI bleed. We would recommend gentle diuresis. Wean O2 for saturation 90%. If the patient developed signs and symptoms of aspiration pneumonia, broad spectrum antibiotics will be helpful. For now, we would hold off anticoagulation. In this patient, we would recommend reversal agent such as Coumadin or Pradaxa as an oral anticoagulant. Alcohol withdrawal prophylaxis recommended. [facility] [address] [place] [address] CONSULTATION Name: TANYA FRANK Room #: 241-P [facility] IN .R.#: [id number] Admission: 03/27/17 Attend Phys: Abram Frances MD Discharge: 03/31/17 Date of : 69 Report #: [id number] Thank you for this consultation. <ELECTRONICALLY SIGNED> By: Abram Frances MD 04/01/17 1556 1119 1223 Abram Frances MD /nt
--- NOTE | ~2017-03-27 | 2DMMODE ---
[facility] [address] [address] 2 D/M-MODE ECHOCARDIOGRAM Name: TANYA FRANK Room #: 363-P ADM IN M.R.#: [id number] Admission: 03/27/17 Attend Phys: Gene Arias, Discharge: Date of : 69 Date of Service: 03/27/17 193 Report #: [id number] THIS REPORT FOR: //name// APPROVED REPORT Study performed: 03/27/2017 14:44:21 EXAM: Comprehensive 2D, Doppler, and color-flow Echocardiogram Patient Location: Echo lab Room #: 363 Status: routine BSA: 1.88 HR: 78 bpm BP: 105/62 mmHg Rhythm: NSR/PVCs Other Information Study Quality: Good Indications Cardiomyopathy. ETOH abuse 2D Dimensions RVDd: 39.46 mm LVEF(%): 32.74 (>50%) IVSd: 12.06 (7-11mm) LVOT Diam: 20.46 (18-24mm) LVDd: 54.31 mm PWd: 9.41 (7-11mm) Ascending Ao: 26.19 (22-36mm) LVDs: 45.79 (25-40mm) Aortic Root: 26.36 mm Tolbert's LVEF: 32.74 % Volumes Left Atrial Volume (Systole) Single Plane 4CH: 89.90 mL Single Plane 2CH: 74.21 mL LA ESV Index: 47.00 mL/m2 Aortic Valve AoV Peak Jaylen.: 1.39 m/s AO Peak Gr.: 7.68 mmHg LVOT Max P.99 mmHg LVOT Max V: 1.22 m/s ZANE Vmax: 2.90 cm2 AI Vmax: 4.02 m/s AI Mclean: 2.59 m/s2 AI PHT: 450.16 ms [facility] [place] [address] 2 D/M-MODE ECHOCARDIOGRAM Name: FRANKTARUNESEQUIEL Room #: 363-P [facility] IN M.R.#: [id number] Admission: 03/27/17 Attend Phys: Gene Arias, Discharge: Date of : 69 Date of Service: 03/27/17 1933 Report #: [id number] Mitral Valve E/A Ratio: 1.1 MV Decel. Time: 256.27 ms MV E Max Jaylen.: 1.39 m/s MV A Jaylen.: 1.23 m/s MV PHT: 74.32 ms IVRT: 69.20 ms Pulmonary Valve PV Peak Jaylen.: 0.97 m/s PV Peak Gr.: 3.78 mmHg Pulmonary Vein P Vein S: 0.70 m/s P Vein A: 0.50 m/s P Vein D: 0.43 m/s P Vein A Dur.: 120.0 msec P Vein S/D Ratio: 1.63 Tricuspid Valve TR Peak Jaylen.: 2.54 m/s RAP Estimate: 5.00 mmHg TR Peak Gr.: 25.87 mmHg PA Pressure: 31.00 mmHg Left Ventricle The left ventricle is normal size. There is normal left ventricular wall thickness. Left ventricular systolic function is severely decreased. LVEF 35%. Moderate diastolic dysfunction is present (pseudonormal filling). Right Ventricle The right ventricle is normal size. Right ventricle is mildly hypokinetic. Atria Left atrium is severely dilated. The right atrium size is normal. Aortic Valve The aortic valve is grossly normal Mild-moderate aortic regurgitation. There is no aortic valvular stenosis. Mitral Valve Mitral valve leaflets are mildly thickened. Moderate mitral regurgitation. Tricuspid Valve The tricuspid valve is normal in structure. Trace to mild tricuspid regurgitation. Estimated PAP is 30-35mmHg. [place] [address] [address] [place] [address] 2 D/M-MODE ECHOCARDIOGRAM Name: TANYA FRANK Room #: 363-P [facility] IN .R.#: [id number] Admission: 03/27/17 Attend Phys: Gene Arias, Discharge: Date of : 69 Date of Service: 03/27/17 1933 Report #: [id number] Pulmonic Valve The pulmonary valve is normal in structure. Trace pulmonic regurgitation. Great Vessels The aortic root is normal in size. The ascending aorta is normal in size. IVC is normal in size and collapses >50% with inspiration. Pericardium There is no pericardial effusion. <Conclusion> Moderately severe global LV dysfunction. LVEF 35%. Moderate diastolic dysfunction is present (pseudonormal filling). Left atrium is severely dilated. The aortic valve is grossly normal. Mild-moderate aortic regurgitation, no stenosis Mitral valve leaflets are mildly thickened. Moderate mitral regurgitation. Pulmonary artery pressure of 30-35mmHg There is no pericardial effusion. No significant change from December 2016 <ELECTRONICALLY SIGNED> By: Yoni Lux MD, FACC 03/27/171932 32 32 Yoni Lux MD, FACC /INF
--- NOTE | ~2017-03-27 | EKG ---
[address] [place] [address] ELECTROCARDIOGRAM REPORT Name: TANYA FRANK Room #: 363-P ADM IN M.R.#: [id number] Admission: 03/27/17 Attend Phys: Gene Arias DO Discharge: Date of : 69 Report #: [id number] THIS REPORT FOR: //name// [facility] ED Test Date: 2017-03-27 Test Time: 11:59:29 Pat Name: TANYA FRANK Department: Room: 363 Gender: M [place] [employer]: MERLIN : 1965 Requested By: Evette Billingsley Order Number: [id number] MD: Yoni Lux Measurements Intervals [place] Rate: 74 P: 49 IA: 148 QRS: -48 QRSD: 93 T: 95 QT: 415 QTc: 461 Interpretive Statements Sinus rhythm Probable left atrial enlargement Left anterior fascicular block Low voltage, precordial leads Nonspecific T abnormalities Compared to ECG 12/26/2016 21:59:26 T-wave abnormality present Electronically Signed On 03-28-2017 8:29:56 [employer] SCI[employer] WR[employer] by Yoni Lux [email or web address] <ELECTRONICALLY SIGNED> By: Yoni Lux MD, [facility] 03/28/17 0829 1159 1159 Yoni Lux MD, [facility] /EPI
[~2017-03-27 11:05] MED LIST changes: +AUGMENTIN 875-1 EACH PO; +CHLORDIAZEPOXID10 MG PO; +NICOTINE TRANSD21 M1 TRANSDERM; +PRENATAL PO; +PROTONIX IV40 MG IV PUSH; +PROTONIX40 M1 PO; +VITAMIN B-1100 M2 PO
[2017-03-27 11:13] VITALS: BP 84/52
[2017-03-27 11:40] LABS: ABSOLUTE NEUTROPHILS 4.5 thou/uL (1.4-8.2); BASOPHILS 0.9 % (0.0-2.0); EOSINOPHILS 1.4 % (0.0-3.0); HEMATOCRIT 39.8 % (42.0-52.0); LYMPHOCYTES 19.5 % (24.0-44.0); MCH 35.3 pg (26.0-34.0); MCHC 35.1 g/dL (28.0-37.0); MCV 100.5 fL (80.0-100.0); MONOCYTES 9.1 % (1.0-8.0); POLYS 69.1 % (36.0-66.0); RBC 3.96 mil/uL (4.50-6.00); RDW 13.3 % (10.5-14.5); WBC 6.5 thou/uL (4.0-11.0)
[2017-03-27 11:42] LABS: MANUAL DIFF NO
[2017-03-27 11:46] LABS: CALCIUM 8.9 mg/dL (8.5-10.1); CREATININE 1.4 mg/dL (0.7-1.3); POTASSIUM 3.5 mmol/L (3.5-5.1)
[2017-03-27 11:53] LABS: ALBUMIN 3.2 g/dL (3.4-5.0); TOTAL BILIRUBIN 0.6 mg/dL (<0.1-1.0); TOTAL PROTEIN 7.1 g/dL (6.4-8.2)
[2017-03-27 12:17] LABS: PLATELET COUNT 79 thou/uL (150-400)
[2017-03-27 13:12] LABS: PHOSPHORUS 4.3 mg/dL (2.5-4.9)
[2017-03-27 13:14] LABS: CHOLESTEROL 195 mg/dL (<200); HDL CHOLESTEROL 43 mg/dL (>40); LDL CHOLESTEROL 120 mg/dL (<100); TC:HDL 4.5 Ratio (Not establshd); TRIGLYCERIDE 160 mg/dL (<150); VLDL 32 mg/dL (<40)
[2017-03-27 14:26] VITALS: BP 110/59
[2017-03-27 14:30] LABS: URINE BILIRUBIN NEGATIVE (Negative); URINE BLOOD NEGATIVE (Negative); URINE COLOR YELLOW; URINE GLUCOSE-RANDOM* NEGATIVE (Negative); URINE KETONES NEGATIVE (Negative); URINE NITRITE NEGATIVE (Negative); URINE PROTEIN (DIPSTICK) NEGATIVE (Negative); URINE SPECIFIC GRAVITY <= 1.005 (1.005-1.035); URINE UROBILINOGEN 0.2 E.U./dl (0.2-1.0)
[2017-03-27 14:41] LABS: AMP/METHAMP Negative (Negative); BARBITURATES Negative (Negative); BENZODIAZEPINES Negative (Negative); COCAINE Negative (Negative); METHADONE Negative (Negative); OPIATES POSITIVE (Negative); PCP Negative (Negative)
[2017-03-27 15:03] LABS: FOLIC ACID 28.5 ng/mL (8.6-58.9)
[2017-03-27 15:38] VITALS: BP 110/62
[2017-03-27 19:54] VITALS: BP 98/57
[2017-03-28 00:06] VITALS: BP 129/81
[2017-03-28 03:50] VITALS: BP 122/81
[2017-03-28 06:39] LABS: ABSOLUTE NEUTROPHILS 4.1 thou/uL (1.4-8.2); BASOPHILS 0.8 % (0.0-2.0); EOSINOPHILS 2.3 % (0.0-3.0); HEMATOCRIT 37.6 % (42.0-52.0); HEMOGLOBIN 12.9 gm/dL (14.0-18.0); LYMPHOCYTES 27.5 % (24.0-44.0); MCH 35.5 pg (26.0-34.0); MCHC 34.3 g/dL (28.0-37.0); MCV 103.5 fL (80.0-100.0); POLYS 60.4 % (36.0-66.0); RBC 3.63 mil/uL (4.50-6.00); RDW 13.1 % (10.5-14.5); WBC 6.7 thou/uL (4.0-11.0)
[2017-03-28 06:46] LABS: MANUAL DIFF NO
[2017-03-28 06:48] LABS: CALCIUM 8.6 mg/dL (8.5-10.1); CREATININE 1.1 mg/dL (0.7-1.3); POTASSIUM 3.9 mmol/L (3.5-5.1)
[2017-03-28 08:08] LABS: MACROCYTES 1+
[2017-03-28 08:10] LABS: PLATELET COUNT 66 thou/uL (150-400)
[2017-03-28 08:33] VITALS: BP 119/75
[2017-03-28 11:34] VITALS: BP 90/68
[2017-03-28 17:15] VITALS: BP 104/71
[2017-03-28 19:55] VITALS: BP 110/74
[2017-03-29 04:12] VITALS: BP 141/89
[2017-03-29 07:47] VITALS: BP 137/97
[2017-03-29 08:18] LABS: CALCIUM 8.3 mg/dL (8.5-10.1); CREATININE 1.1 mg/dL (0.7-1.3); POTASSIUM 4.4 mmol/L (3.5-5.1)
[2017-03-29 13:52] VITALS: BP 132/89
[2017-03-29 19:24] VITALS: BP 132/92
[2017-03-30] VITALS (36 sets, daily range): BP systolic 100–154; BP diastolic 49–101
[2017-03-30 03:55] LABS: ABG SAMPLE TYPE ARTERIAL; BE(vivo) -1.1 mmol/L (-2 to +3); HCO3 22.6 mmol/L (22.0-26.0); LACTATE 1.12 mmol/L (0.5-2.0); O2(CT) 16.9 mL/dL (15.0-23.0); PCO2 34.9 mmHg (35.0-45.0); pH 7.429 (7.360-7.450); sO2 86.7 % (92.0-98.0); tCO2 23.7 mmol/L (24.0-30.0)
[2017-03-30 03:56] LABS: O2Hb 84.1 % (92.0-98.0); PO2 49.9 mmHg (80.0-100.0); STICK SITE R.BRACHIAL
[2017-03-30 03:58] LABS: HEMATOCRIT 41.2 % (42.0-52.0); HEMOGLOBIN 14.4 gm/dL (14.0-18.0); MCH 35.7 pg (26.0-34.0); MCHC 34.9 g/dL (28.0-37.0); MCV 102.3 fL (80.0-100.0); RBC 4.03 mil/uL (4.50-6.00); WBC 8.6 thou/uL (4.0-11.0)
[2017-03-30 04:04] LABS: CALCIUM 8.8 mg/dL (8.5-10.1); CREATININE 1.2 mg/dL (0.7-1.3); MAGNESIUM 1.6 mg/dL (1.8-2.4); POTASSIUM 4.3 mmol/L (3.5-5.1); TOTAL BILIRUBIN 0.9 mg/dL (<0.1-1.0)
[2017-03-30 12:42] LABS: HEMATOCRIT 39.7 % (42.0-52.0); HEMOGLOBIN 13.8 gm/dL (14.0-18.0); MCH 35.5 pg (26.0-34.0); MCHC 34.8 g/dL (28.0-37.0); RBC 3.89 mil/uL (4.50-6.00); WBC 7.8 thou/uL (4.0-11.0)
[2017-03-31] VITALS (16 sets, daily range): BP systolic 126–148; BP diastolic 74–106
[2017-03-31 05:56] LABS: HEMATOCRIT 37.7 % (42.0-52.0)
[2017-03-31 06:07] LABS: ALBUMIN 2.6 g/dL (3.4-5.0); CALCIUM 8.8 mg/dL (8.5-10.1); CREATININE 1.1 mg/dL (0.7-1.3); POTASSIUM 3.7 mmol/L (3.5-5.1); TOTAL BILIRUBIN 0.8 mg/dL (<0.1-1.0); TOTAL PROTEIN 6.4 g/dL (6.4-8.2)
== END 2017-03-31 14:01 | disposition home or self-care (01) | DRG 438 ==
LOC: ER 11:05 → 3W 12:47 → EROBS 12:47 → 3W 15:57 → ICU 03-30 07:18 → ENTRNSPT 03-31 13:38 → EDTRNSPTSTS 03-31 13:40 → CMPTRNSPT 03-31 13:54 → ICU 03-31 14:01
PROVIDERS: Family Medicine; Internal Medicine Gastroenterology; Internal Medicine Pulmonary Disease; Nurse Practitioner Acute Care; Nurse Practitioner Adult Health; Nurse Practitioner Family
PROC: 0DB68ZX Excision of Stomach, Via Natural or Artificial Opening Endoscopic, Diagnostic (ICD-10-PCS; principal; 2017-03-31)
DX: K85.20 Alcohol induced acute pancreatitis without necrosis or infection (principal); J96.01 Acute respiratory failure with hypoxia; F10.239 Alcohol dependence with withdrawal, unspecified; I42.0 Dilated cardiomyopathy; N17.9 Acute kidney failure, unspecified; I42.6 Alcoholic cardiomyopathy; I47.2 Ventricular tachycardia; E44.0 Moderate protein-calorie malnutrition; Z68.1 Body mass index [BMI] 19.9 or less, adult; K29.70 Gastritis, unspecified, without bleeding; K86.1 Other chronic pancreatitis; E86.9 Volume depletion, unspecified; F17.210 Nicotine dependence, cigarettes, uncomplicated; D69.6 Thrombocytopenia, unspecified; K76.0 Fatty (change of) liver, not elsewhere classified; E83.42 Hypomagnesemia; I49.9 Cardiac arrhythmia, unspecified; F41.9 Anxiety disorder, unspecified; Z28.21 Immunization not carried out because of patient refusal; Z79.01 Long term (current) use of anticoagulants; Z82.49 Family history of ischemic heart disease and other diseases of the circulatory system; Z79.899 Other long term (current) drug therapy
CPT/HCPCS: 10078; 10879; 62110; 62900; 70005

== ENCOUNTER → 2017-04-24 | Outpatient (CLI) | payer BC ==
[~2017-04-24] VITALS: Ht 175.3 cm; Wt 77.1 kg
[~2017-04-24] MED LIST changes: +ANTABUSE500 MG PO; -CARVEDILOL12.5 MG PO; +COREG25 MG PO; -COZAAR 25 MG TA25 M1 PO; +COZAAR 50 MG TA50 M2 PO; +LIPITOR 20 MG T20 M1 PO; -LIPITOR10 MG PO; +PROAIR HFA8.5 GM; +TRAZODONE HCL50 MG PO; +TYLENOL EXTRA500 MG PO; -XARELTO10 MG PO; +XARELTO15 MG PO; +ZOLPIDEM TARTRA10 MG PO
--- NOTE | ~2017-04-24 | HPC ---
[facility] [address] [place] [address] PAIN MANAGEMENT CONSULTATION Name: TANYA FRANK Room #: REG BOGDAN Tiana#: [id number] Admission: 04/24/17 Attend Phys: Rizwan Fine DO Discharge: Date of : 69 Report #: [id number] THIS REPORT FOR: //name// CC: Brenda Fine DATE OF SERVICE: 04/24/2017 HISTORY OF PRESENT ILLNESS: The patient is a pleasant 51-year-old gentleman seen in consultation at the request of Dr. Baker for evaluation of pain primarily mid back, beltline. The patient states he has had chronic back pain for 3 or more years. Denying specific antecedent trauma and overuse. It sounds like he had a series of lumbar epidural injections in the past with some efficacy. He was recently admitted to [facility] (03/27/2017) for 4 nights' stay for acute versus chronic pancreatitis, history of alcohol-induced cardiomyopathy. The patient tells me he uses Tylenol for pain. He has been to physical therapy; they gave him bands for exercise, though he admits that he uses that on a not regular basis. He describes steady, constant, throbbing pain that he rates anywhere from 7-10 on a visual analog scale, exacerbated with standing and bending. REVIEW OF SYSTEMS: Complete review of systems was attached to chart and was gone over with the patient. He is , seen in the company of who is supportive. He smokes up to 2 packs of cigarettes a day, which he has for 20+ years. States he still drinks socially, but has been in detox and has been in rehab with AA in the past. Again, recently in the hospital with alcohol-induced cardiomyopathy, left ventricular ejection fraction is 30-35%. Did have an episode of nonsustained VT, started on Coreg. History of hypertension. MEDICATIONS: Reconciled and include albuterol for some reactive airway disease, Antabuse, trazodone, zolpidem 10 mg at bedtime, losartan, atorvastatin, carvedilol, Xarelto, and spironolactone. The patient was cautioned about "social drinking" and Antabuse. One question is whether he is actually taking the Antabuse or not if he is indeed drinking. 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 He states he has continued to work despite pain. Pain impact score averages about 42/70. PHYSICAL EXAMINATION: VITAL SIGNS: Reveal a 5 feet 9 inches, 170 pounds gentleman, BMI is 25.1 kilograms per meter squared. Blood pressure is 105/56, pulse 82, respirations are 14. NEUROLOGIC: Cranial nerves 2-12 grossly intact. Pupils equal and reactive to light and accommodation. Extraocular muscles are intact[place] [address] PAIN MANAGEMENT CONSULTATION Name: TANYA FRANK Neda Room #: [facility] Tiana#: [id number] Admission: 04/24/17 Attend Phys: Rizwan Fine DO Discharge: Date of : 69 Report #: [id number] unremarkable. Upper extremity strength is preserved. NECK: Cervical range of motion is full. HEART: Regular rhythmical at this time. There is no murmur detected. LUNGS: Clear. ABDOMEN: Benign. MUSCULOSKELETAL: Rises from the chair using the armrest, diffuse tenderness in the L4-L5 area. No specific tenderness over the SI joints. Lower extremity strength is preserved. Straight leg raise negative. Patellar and Achilles reflexes are preserved. Pain is exacerbated with side bending and rotation. Lumbar flexion is modestly limited. No discrete trigger points are noted. DIAGNOSTIC STUDIES: Include MRI of the lumbar spine from [facility] in 2016 noting L4-L5, L5-S1 facet hypertrophy and mild disk "bulging" at L4-L5. ASSESSMENT: Symptomatic lumbar spondylosis by clinical exam and history, axial back pain, history of lumbar radiculopathy in a gentleman with history of ethanol habituation and abuse, currently prescribed Antabuse, history of alcohol-induced cardiomyopathy, dyslipidemia and hypertension, on Xarelto for history of cardiac arrhythmia. RECOMMENDATION: I had a discussion with the patient today about therapeutic options. We have elected to move forward with bilateral L4-L5 and L5-S1 facet joint injection under fluoroscopy. If this affords transient relief, we can consider medial branch dorsal rami diagnostic blocks. If that affords transient relief, we can consider neurolysis of same (the former injection can be done on Xarelto. The latter would have to be off Xarelto for 3 days). Thank you for allowing me to participate in the patient's care. I will keep you abreast of his progress. PROCEDURE: Bilateral L4-L5, L5-S1 facet joint injection under fluoroscopy. PROCEDURE NOTE: After written and informed consent was obtained, the patient was taken to the fluoroscopy suite and placed in prone position. After sterile prep and drape, skin wheal was raised. A 22-gauge stylet needle was placed to contact the posterior aspect of the left L4-L5 and left L5-S1 facet joints. AP and lateral projections showed good needle placement, 20 mg triamcinolone plus 1 mL of 0.5% preservative-free bupivacaine injected at each site. Both needles removed. C-arm was turned obliquely to the contralateral, right, side. Procedure was repeated. After all 4 needles removed, the patient was allowed to [facility] [address] [place] [address] PAIN MANAGEMENT CONSULTATION Name: TANYA FRANK Room #: REG TA Tiana#: [id number] Admission: 04/24/17 Attend Phys: Rizwan Fine DO Discharge: Date of : 69 Report #: [id number] ambulate to recovery, monitor for an appropriate period of time. Fluoroscopy time was under 20 seconds. Discharged in good and stable condition. <ELECTRONICALLY SIGNED> By: Rizwan Fine DO 04/26/17 0816 1554 0144 Rizwan Fine DO /nt
[2017-04-24 13:10] VITALS: BP 106/56
== END | disposition home or self-care (01) ==
LOC: PAIN 07:04
DX: M47.816 Spondylosis without myelopathy or radiculopathy, lumbar region (principal); M54.9 Dorsalgia, unspecified; I10 Essential (primary) hypertension; E78.5 Hyperlipidemia, unspecified; F17.210 Nicotine dependence, cigarettes, uncomplicated; Z79.899 Other long term (current) drug therapy; Z86.79 Personal history of other diseases of the circulatory system; Z98.890 Other specified postprocedural states

== ENCOUNTER → 2017-05-08 | Outpatient (CLI) | payer BC ==
[~2017-05-08] VITALS: Ht 175.3 cm; Wt 79.7 kg
--- NOTE | ~2017-05-08 | HPC ---
[facility] [address] [place] [address] PAIN MANAGEMENT CONSULTATION Name: TANYA FRANK Room #: REG TABoaz Montiel#: [id number] Admission: 05/08/17 Attend Phys: Rizwan Fine DO Discharge: Date of : 69 Report #: [id number] THIS REPORT FOR: //name// CC: Brenda Fine DATE OF SERVICE: 05/08/2017 HISTORY OF PRESENT ILLNESS: The patient is a 51-year-old gentleman seen in consultation on 04/24/2017, diagnosed with symptomatic axial back pain secondary to lumbar spondylosis. I progressed to perform left and right L4-L5 and L5-S1 facet joint injections under fluoroscopy. The patient has a complicated medical history, states he was given Antabuse for chronic ethanol. He has self discontinued this and has resumed drinking vodka daily. He continues to smoke. Still smoking up to a 1-2 packs a day. He is wearing an external cardiac defibrillator for alcohol-induced cardiomyopathy and cardiac dysrhythmia. He returns to the pain clinic today noting that the intervention (bilateral L4-L5 and L5-S1 facet joint injections) afforded a good relief, greater than 50%. When pressed, he notes his chronic axial back pain has resolved. He still has episodic pain. The episodic pain seems to be unrelated to activity, it can occur even when he is sitting and watching TV, but does not seem to wake him from sleep, though he tells me concerningly he takes 2 Ambien at night (along with daily alcohol. This is a recipe for disaster). PHYSICAL EXAMINATION: Shows pleasant 51-year-old gentleman, BMI is 25.9 kilograms per meter squared. Vital signs are stable as noted on the EMR. Rates his pain a 4 on a VAS. BMI is 25.9 kilograms per meter squared. Has not fallen since we saw him. He is on Xarelto. He is not using daily narcotics. Does smoke as noted above. Rises from the chair using the armrest. Diffuse tenderness in the L4-L5 area. Really, no tenderness over the SI joints. Lower extremity strength is preserved. Gait is tandem. Again, he is wearing an external cardiac defibrillator. Lumbar flexion is limited, does exacerbate low back pain. ASSESSMENT: Lumbar spondylosis, axial back pain in a gentleman with multiple comorbidities including ethanol habituation, alcoholic cirrhosis and cardiomyopathy. RECOMMENDATIONS: 1. We will postpone interventional therapy at this time. If symptoms recur, i.e., chronic axial back pain, we can repeat the bilateral facet joint injection under fluoroscopy. Does not need to be on Xarelto for this. [address] [address] PAIN MANAGEMENT CONSULTATION Name: TANYA FRANK Room #: REG BOGDAN Montiel#: [id number] Admission: 05/08/17 Attend Phys: Rizwan Fine DO Discharge: Date of : 69 Report #: [id number] 2. We did talk about doing some core strengthening exercises. His exercise tolerance is quite limited due to his cardiomyopathy. We talked about some moderate exercises he can do and was given a pamphlet regarding same. Thank you for allowing me to participate in the patient's care. We will see him simply on an as-needed basis. <ELECTRONICALLY SIGNED> By: Rizwan Fine DO 05/10/17 0811 1038 2152 Rizwan Fine DO /nt
[2017-05-08 10:01] VITALS: BP 107/60
== END ==
LOC: PAIN 06:59
DX: M47.896 Other spondylosis, lumbar region (principal); K70.30 Alcoholic cirrhosis of liver without ascites; I42.9 Cardiomyopathy, unspecified; F10.99 Alcohol use, unspecified with unspecified alcohol-induced disorder